=== PATIENT | female | born 1995 | race American Indian/Alaskan Native ===

== ENCOUNTER 2018-10-14 18:24 | Emergency (ER) | payer OTHER ==
[2018-10-14 18:25] VITALS: BMI 34.3
[2018-10-14 18:41] VITALS: PULSE 82; RESP 20; TEMP 98.7; O2SAT 100
[2018-10-14 18:51] VITALS: BP 120/83
--- NOTE | 2018-10-14 20:42 | C.PDOC ---
History Of Present Illness 23 yo female presents to the ER complaining of intermittent chest pain which has been present for the past few months. Patient describes the pain as sharp and stabbing. She notes that her last episode of chest pain was earlier today. Patient reports that she also has tingling sensation in bilateral hands and feet for the past few months. She is concerned she may have diabetes because of the tingling sensation. Currently, patient denies having chest pain, shortness of breath, cough, fever,chills, and control use. Time Seen by Provider: 10/14/18 19:24 Chief Complaint (Nursing): Chest Pain History Per: Patient History/Exam Limitations: no limitations Onset/Duration Of Symptoms: Days Current Symptoms Are (Timing): Still Present Severity: Moderate Past Medical History Reviewed: Historical Data, Nursing Documentation, Vital Signs Vital Signs: Last Vital Signs Temp 98.7 F 10/14/18 18:38 Pulse 82 10/14/18 18:38 Resp 20 10/14/18 18:38 BP 120/83 10/14/18 18:50 Pulse Ox 100 10/14/18 18:38 - Medical History PMH: No Chronic Diseases Surgical History: No Surg Hx Family History: States: No Known Family Hx - Social History Hx Alcohol Use: No Hx Substance Use: No - Immunization History Hx Tetanus Toxoid Vaccination: No Hx Influenza Vaccination: No Hx Pneumococcal Vaccination: No Review Of Systems Constitutional: Negative for: Fever, Chills Cardiovascular: Positive for: Chest Pain (currently resolved) Respiratory: Negative for: Shortness of Breath Gastrointestinal: Negative for: Nausea, Vomiting Neurological: Positive for: Other (tingling in hands and feet). Negative for: Weakness Physical Exam - Physical Exam Appears: Non-toxic, No Acute Distress Skin: Normal Color, Warm, Dry Head: Atraumatic, Normacephalic Eye(s): bilateral: Normal Inspection Neck: Supple Chest: Symmetrical Cardiovascular: Rhythm Regular Respiratory: Normal Breath Sounds, No Rales, No Rhonchi, No Wheezing Extremity: Normal ROM Neurological/Psych: Oriented x3, Normal Speech, Normal Motor, Normal Sensation ED Course And Treatment O2 Sat by Pulse Oximetry: 100 (RA) Pulse Ox Interpretation: Normal Medical Decision Making Medical Decision Making: Plan: --CXR --Glucose, POC CXR, EKG both normal. she states her main concern was to check for diabetes. she denies having any chest pain since earlier today. Disposition Counseled Patient/Family Regarding: Diagnosis, Need For Followup - Disposition Referrals: [facility] [Outside] Disposition: HOME/ ROUTINE Disposition Time: 20:42 Condition: STABLE Instructions: Chest Pain That Is Not Caused by the Heart (DC), Paresthesias (DC) Forms: [facility] (Azeri), General Discharge Instructions - Clinical Impression Clinical Impression: Pleuritic pain, Paresthesia - PA / [employer] / Resident Statement MD/DO has reviewed & agrees with the documentation as recorded. - Scribe Statement The provider has reviewed the documentation as recorded by the Tianaibe Prachi Rogel Provider Attestation All medical record entries made by the Scribe were at my direction and personally dictated by me. I have reviewed the chart and agree that the record accurately reflects my personal performance of the history, physical exam, medical decision making, and the department course for this patient. I have also personally directed, reviewed, and agree with the discharge instructions and d isposition.
--- NOTE | 2018-10-15 10:15 | RAD ---
HISTORY: pna COMPARISON: None available. TECHNIQUE: Chest PA and lateral, 2 views FINDINGS: LUNGS: No focal consolidation. PLEURA: No significant pleural effusion identified. No definite pneumothorax . CARDIOVASCULAR: The cardiomediastinal silhouette appears within normal limits of size. No atherosclerotic calcification present. OSSEOUS STRUCTURES: No acute osseous abnormality identified. VISUALIZED UPPER ABDOMEN: Unremarkable. OTHER FINDINGS: None. IMPRESSION: No focal consolidation identified.
--- NOTE | 2018-10-15 23:52 | CARD ---
APPROVED REPORT Date of service: 10/14/2018 EKG Measurement Heart [id number] <Conclusion> Normal sinus rhythm Normal ECG
== END 2018-10-14 20:56 | disposition home or self-care (01) ==
LOC: C.ER 18:24
DX: R07.81 Pleurodynia (principal); R20.2 Paresthesia of skin